=== PATIENT | male | born 1995 | race American Indian/Alaskan Native ===

== ENCOUNTER 2016-09-06 18:09 | Emergency (ER) | payer OTHER ==
[2016-09-06 18:29] VITALS: BP 135/90
[2016-09-06] MEDS ORDERED: TRIPLE ANTIBIOTIC TP ONE (20:28)
[2016-09-06] MEDS ORDERED: NACL 0.9% IR ONE (20:28)
[2016-09-06] MEDS ORDERED: BOOSTRIX IM ONE (20:28)
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
== END 2016-09-06 22:42 | disposition home or self-care (01) ==
LOC: EEVIPCON 18:09 → ED 18:09
DX: S61.432A Puncture wound without foreign body of left hand, initial encounter (principal); B35.6 Tinea cruris; F17.200 Nicotine dependence, unspecified, uncomplicated; F12.90 Cannabis use, unspecified, uncomplicated; W51.XXXA Accidental striking against or bumped into by another person, initial encounter; Y93.89 Activity, other specified; Y99.9 Unspecified external cause status; Y92.89 Other specified places as the place of occurrence of the external cause
CPT/HCPCS: 90471; 90715; A6250